=== PATIENT | male | born 1990 | race African-American/Black ===

== ENCOUNTER 2018-04-18 20:19 | Emergency (ER) | payer SELFPAY ==
[~2018-04-18] VITALS: Ht 185.4 cm; Wt 86.2 kg
[2018-04-18] VITALS (17 sets, daily range): BP systolic 65–122; BP diastolic 55–72
--- NOTE | 2018-04-18 20:37 | Emergency Room Report ---
History of Present Illness General Chief Complaint: Behavioral Complaint Source: Patient Present Illness HPI 27-year-old male reports that he got himself into trouble today, he is actually restrained by police when he came in, he admits using meth today, and he was running around in traffic acting agitated and so was brought in. Patient himself agrees to using meth, and denies any pain complaints, and he says "I got myself and her trouble today for a stupid", he denies suicidal, homicidal ideations, and denies hearing voices Allergies: Coded Allergies: No Known Allergies (Unverified , 04/18/18) Patient History Past Medical History: see triage record Reviewed Nursing Documentation: PMH: Agreed; PSxH: Agreed Nursing Documentation-PMH Past Medical History: No History, Except For Hx Cardiac Problems: No - HIV History Of Psychiatric Problem: Yes - Bipolar Review of Systems Constitutional: Denies: fevers, chills, weakness ENT: Denies: hearing loss, nasal d/c Respiratory: Denies: SOB, cough Cardiovascular: Denies: chest pain, palpitations, syncope Gastrointestinal/Abdominal: Denies: pain, nausea, vomiting, diarrhea, melena, hematemesis Genitourinary: Denies: dysuria, urgency Musculoskeletal: Denies: new bone or joint pain, back problems, swelling Skin: Denies: skin lesions, rash Psychiatric: Denies: no symptoms Neurological: Denies: syncope, CALLE, seizures, dizziness Endocrine: Denies: no symptoms Hematologic/Lymphatic: Denies: bruising, adenopathy, bleeding diathesis Allergic: Denies: urticaria All Other Systems: negative except mentioned in HPI Physical Exam Vital Signs Date Time Temp Pulse Resp B/P (MAP) Pulse Ox O2 Delivery O2 Flow Rate FiO2 04/18/18 20:15 98.4 120 18 132/78 98 Room Air 98.4 Sp02 EP Interpretation: reviewed, normal General Appearance: alert/responsive, no apparent distress, GCS 15, non-toxic Head: atraumatic Eyes: PERRL, lids + conjunctiva normal ENT: hearing intact, no angioedema Neck: supple/symm/no masses, no meningismus Respiratory: effort normal, no wheezing, chest symmetrical Cardiovascular: regular rate, rhythm - Tachycardic, no edema Cardiovascular #2: 2+ carotid (R), 2+ carotid (L), 2+ dorsalis pedis (R), 2+ dorsalis pedis (L) Gastrointestinal: non-tender, no mass, non-distended, no rebound/guarding, normal bowel sounds Musculoskeletal: gait & station normal, strength & tone normal, normal ROM, non -tender Neurologic: oriented x3 - To person and situation, sensory intact, normal speech Psychiatric: anxious Skin: no rash, well hydrated Lymphatic: normal inspection Procedures Critical Care Time Critical Care Time 30 minutes of critical care time on this patient required emergency medications and 4 point restraints to control his acute agitation to keep him from harming himself and others. Medical Decision Making Restraint Attestation I, Mari Concepcion MD, have personally evaluated this patient. Laboratory tests have been reviewed and addressed accordingly. The patient is deemed to present a danger to themselves and/or others. This is based on the exam, history ( provided by patient, EMS/[facility] and/or family) and observed or reported behavior. Attempts for non-invasive measures have been considered and/or attempted, however, have been futile. It is in the best interest of the nursing staff, the patient, and others involved in this patient's care that behavioral restraints be applied. Patient evaluation reveals the following: patient acutely agitated, posing risk to himself and staff. Diagnostic Impression: Primary Impression: Behavioral change Additional Impression: Methamphetamine abuse ER Course Patient placed on restraints, and also given intramuscular Haldol, Ativan, Benadryl. Suspect acute agitation from methamphetamine abuse, no evidence for other type of psychosis or suicidality or homicidality. Patient given by mouth potassium, labs otherwise unremarkable, pending results of urinalysis, otherwise medically cleared and we will allow to sober up to reevaluate if need for any other medical or psychiatric care. Diagnosis methamphetamine abuse and intoxication. EKG Diagnostic Results EKG Time: 20:31 EP Interpretation: Sinus tachycardia, rate 117, no symptoms changes, no T-wave inversions, nor Rate: tachycardiac Rhythm: NSR ST Segments: no acute changes ASA given to the pt in ED: Yes Rhythm Strip Diag. Results Rhythm Strip Time: 20:49 EP Interpretation: yes Rate: 115 Rhythm: NSR, no PVC's, no ectopy Last Vital Signs Date Time Temp Pulse Resp B/P (MAP) Pulse Ox O2 Delivery O2 Flow Rate FiO2 9/17/18 20:15 98.4 120 18 132/78 98 Room Air 98.4 Condition: Stable MARI CONCEPCION M.D Apr 18, 2018 20:37
[2018-04-18] MEDS ORDERED: DiphenhydrAMINE 50mg/ml Inj IM ONE (20:45)
[2018-04-18] MEDS ORDERED: Haloperidol 5mg/ml Inj IM ONE (20:45)
[2018-04-18] MEDS ORDERED: LORazepam Inj 2mg/ml 1ml IM ONE (20:45)
[2018-04-18 21:09] LABS: BASOPHILS % (AUTO) 2.9 % (0.0-2.0); EOSINOPHILS % (AUTO) 1.6 % (0.0-3.0); HEMATOCRIT 42.7 % (42.0-52.0); LYMPHOCYTES % (AUTO) 34.4 % (20.0-45.0); MEAN CORPUSCULAR VOLUME 83 FL (80-99); MONOCYTES % (AUTO) 9.8 % (1.0-10.0); NEUTROPHILS % (AUTO) 51.3 % (45.0-75.0); PLATELET COUNT 264 K/UL (150-450); RED BLOOD COUNT 5.14 M/UL (4.70-6.10); RED CELL DISTRIBUTION WIDTH 11.6 % (11.6-14.8); WHITE BLOOD COUNT 4.1 K/UL (4.8-10.8)
[2018-04-18 21:23] LABS: ANION GAP 13 mmol/L (5-15); BLOOD UREA NITROGEN 17 mg/dL (7-18); CARBON DIOXIDE 25 MMOL/L (21-32); CHLORIDE 101 MMOL/L (98-107); CREATININE 1.4 MG/DL (0.55-1.30); SODIUM 139 MMOL/L (136-145)
[2018-04-18 21:33] LABS: ALANINE AMINOTRANSFERASE 44 U/L (12-78); ALBUMIN 4.3 G/DL (3.4-5.0); ALBUMIN/GLOBULIN RATIO 1.2 (1.0-2.7); ALKALINE PHOSPHATASE 72 U/L (46-116); ASPARTATE AMINO TRANSFERASE 44 U/L (15-37); BILIRUBIN,TOTAL 1.2 MG/DL (0.2-1.0)
[2018-04-18 21:34] LABS: BILIRUBIN,DIRECT 0.2 MG/DL (0.0-0.3)
[2018-04-18] MEDS: NS w/KCl 40mEq 1,000 ML IV SCH (23:16)
[2018-04-18 23:49] LABS: APPEARANCE,URINE CLOUDY; BILIRUBIN, URINE NEGATIVE (NEGATIVE); COLOR,URINE YELLOW; GLUCOSE, URINE (UA) NEGATIVE (NEGATIVE); KETONES,URINE 1+ (NEGATIVE); LEUKOCYTE ESTERASE ,URINE 1+ (NEGATIVE); NITRITE,URINE NEGATIVE (NEGATIVE); PH,URINE 5 (4.5-8.0); PROTEIN,URINE 2+ (NEGATIVE); UROBILINOGEN,URINE 1 MG/DL (0.0-1.0)
[2018-04-19] VITALS (11 sets, daily range): BP systolic 98–133; BP diastolic 60–90
[2018-04-19] MEDS: NS w/KCl 40mEq 1,000 ML IV SCH (09:00)
== END 2018-04-19 10:34 | disposition home or self-care (01) ==
LOC: EDBD 20:19 → EMR 21:22
DX: F15.188 Other stimulant abuse with other stimulant-induced disorder (principal); R45.1 Restlessness and agitation; F31.9 Bipolar disorder, unspecified
CPT/HCPCS: 36415; 80053; 80307; 81003; 82248; 85025; 87086; 96361; 96374; 96375; 99291; G0480; J1200; J1630; 80329